=== PATIENT | female | born 1995 | race American Indian/Alaskan Native ===

== ENCOUNTER 2017-08-02 14:51 | Emergency (ER) | payer MEDICAID ==
[2017-08-02] MEDS ORDERED: MORPHINE IV ONE (16:20)
[2017-08-02] MEDS ORDERED: NACL 0.9% 1000 ML 1,000 ML IV ONE (16:20)
[2017-08-02] MEDS ORDERED: ZOFRAN IV ONE (16:20)
--- NOTE | 2017-08-02 16:22 | Emergency Department Report ---
<JOHN SAAVEDRA - Last Filed: 08/02/17 18:49> ED Abdominal Pain HPI - General Chief Complaint: Abdominal Pain Stated Complaint: LOWER RIGHT ABD PAIN Time Seen by Provider: 08/02/17 16:19 Source: patient Mode of arrival: Ambulatory Limitations: No Limitations - History of Present Illness Initial Comments: 22-year-old female past medical history hypertension scoliosis presents with complaint of 4-5 days of progressively worsening right-sided upper and lower abdominal pain. Patient denies any trauma denies any falls. Denies nausea vomiting fever or chills. Denies increased urinary frequency but does state that she has some dysuria. Patient awake alert and oriented 3. Pain currently 8 out of 10. Patient appears uncomfortable due to pain. Denies any rash denies any bloody diarrhea. MD Complaint: abdominal pain Onset/Timin -: days(s) Location: RUQ, RLQ Radiation: RUQ, RLQ Migration to: RUQ, RLQ Severity: severe Severity scale (0 -10): 8 Quality: sharp Consistency: constant Worsens With: nothing - Related Data Previous Rx's Medication Instructions Recorded Last Taken Type Ibuprofen [Motrin] 600 mg PO Q8H PRN #30 tablet 08/02/17 Unknown Rx Sulfamethoxazole/Trimethoprim 1 each PO BID #14 tablet 08/02/17 Unknown Rx [Bactrim DS TAB] ED Review of Systems ROS: Stated complaint: LOWER RIGHT ABD PAIN Other details as noted in HPI Constitutional: denies: chills, fever Eyes: denies: eye pain, eye discharge, vision change ENT: denies: ear pain, throat pain Respiratory: denies: cough, shortness of breath, wheezing Cardiovascular: denies: chest pain, palpitations Endocrine: no symptoms reported Gastrointestinal: denies: abdominal pain, nausea, diarrhea Genitourinary: denies: urgency, dysuria, discharge Musculoskeletal: denies: back pain, joint swelling, arthralgia Skin: denies: rash, lesions Neurological: denies: headache, weakness, paresthesias Psychiatric: denies: anxiety, depression Hematological/Lymphatic: denies: easy bleeding, easy bruising ED Past Medical Hx - Past Medical History Previous Medical History?: Yes Hx Hypertension: Yes Additional medical history: scolosis - Surgical History Past Surgical History?: No - Social History Smoking Status: Never Smoker Substance Use Type: None - Medications Home Medications: Home Medications Medication Instructions Recorded Confirmed Last Taken Type Ibuprofen [Motrin] 600 mg PO Q8H PRN #30 tablet 08/02/17 Unknown Rx Sulfamethoxazole/Trimethoprim 1 each PO BID #14 tablet 08/02/17 Unknown Rx [Bactrim DS TAB] ED Physical Exam - General Limitations: No Limitations General appearance: alert, in no apparent distress - Head Head exam: Present: atraumatic, normocephalic - Eye Eye exam: Present: normal appearance, PERRL, EOMI - ENT ENT exam: Present: mucous membranes moist - Neck Neck exam: Present: normal inspection - Respiratory Respiratory exam: Present: normal lung sounds bilaterally. Absent: respiratory distress - Cardiovascular Cardiovascular Exam: Present: regular rate, normal rhythm. Absent: systolic murmur, diastolic murmur, rubs, gallop - GI/Abdominal GI/Abdominal exam: Present: tenderness (right upper quadrant and right lower quadrant tenderness on deep palpation of abdomen), normal bowel sounds - External exam: Present: normal external exam Speculum exam: Present: vaginal discharge (white vaginal discharge) Bi-manual exam: Present: normal bi-manual exam - Extremities Exam Extremities exam: Present: normal inspection - Back Exam Back exam: Present: normal inspection - Neurological Exam Neurological exam: Present: alert, oriented X3 - Psychiatric Psychiatric exam: Present: normal affect, normal mood - Skin Skin exam: Present: warm, dry, intact, normal color. Absent: rash ED Course Vital Signs 08/02/17 08/02/17 14:56 20:01 Temperature 98.7 F 99.0 F Pulse Rate 102 H 70 Respiratory 18 16 Rate Blood Pressure 148/89 Blood Pressure 116/74 [Right] O2 Sat by Pulse 98 99 Oximetry ED Medical Decision Making - Lab Data Result diagrams: 08/02/17 16:34 08/02/17 16:34 - Medical Decision Making A/P: Abdominal pain 1-case reviewed with Dr. Villarreal, CT is unremarkable appendix is normal 2-labs unremarkable, GC cultures sent, wet prep sent 3-pending pelvic ultrasound for assessment of ovaries 4- Critical care attestation.: If time is entered above; I have spent that time in minutes in the direct care of this critically ill patient, excluding procedure time. ED Disposition Clinical Impression: Abdominal pain Qualifiers: Abdominal location: right upper quadrant Qualified Code(s): R10.11 - Right upper quadrant pain UTI (urinary tract infection) Qualifiers: Urinary tract infection type: site unspecified Hematuria presence: without hematuria Qualified Code(s): N39.0 - Urinary tract infection, site not specified Disposition: DC- TO HOME OR SELFCARE Condition: Stable Instructions: Abdominal Pain (ED), Urinary Tract Infection in Women (ED), Sulfamethoxazole/Trimethoprim (By mouth), Ibuprofen (By mouth) Additional Instructions: Follow-up with a primary care doctor in 3-5 days or if symptoms worsen and continue return to emergency room as soon as possible. Prescriptions: Ibuprofen [Motrin] 600 mg PO Q8H PRN #30 tablet PRN Reason: Pain Sulfamethoxazole/Trimethoprim [Bactrim DS TAB] 1 each PO BID #14 tablet Referrals: PRIMARY CAREMD [Primary Care Provider] - 3-5 Days JOHN SANFORD MD [Staff Physician] - 3-5 Days [facility] [Outside] - 3-[address] [facility] [Outside] - 3-5 Days Forms: Work/School Release Form(ED) <TERRY SCHULER - Last Filed: 08/02/17 20:16> ED Course - Reevaluation(s) Reevaluation #1: 08/02/17 19:45 Patient is signed out to me by TESSIE Larson. PAtient is speaking in full sentences with no signs of distress. Pending Ultrasound. ED Medical Decision Making - Lab Data Result diagrams: 08/02/17 16:34 08/02/17 16:34 - Medical Decision Making This is a 22-year-old female that presents with abdominal pain and UTI. Patient is stable. Patient is signed out to me by TESSIE Larson for pending ultrasound. CT/Ultrasound within normal limits and dictated by radiologist. IUD in place. Patient is notified of results with no questions noted. Patient stated symptoms of pain has resolved after medical treatment in the ED. Patient was rehydrated and PO challenge obtained and patient tolerated well with no nausea or vomiting. Vital signs stable prior to discharge. I will treat patient with Bactrim at discharge and motrin for pain. Patient was instructed to Follow- up with a primary care doctor in 3-5 days or if symptoms worsen and continue return to emergency room as soon as possible. At time of discharge, the patient does not seem toxic or ill in appearance. No acute signs of distress noted. Patient agrees to discharge treatment plan of care. No further questions noted by the patient. ED Disposition Is pt being admited?: No Does the pt Need Aspirin: No
[2017-08-02 16:53] LABS: Basophils # (Auto) 0.1 K/mm3 (0.0-0.1); Basophils % (Auto) 0.8 % (0.0-1.8); Eosinophils # (Auto) 0.1 K/mm3 (0.0-0.4); Eosinophils % (Auto) 0.7 % (0.0-4.3); Hematocrit 38.1 % (30.3-42.9); Hemoglobin 12.5 gm/dl (10.1-14.3); Lymphocytes # (Auto) 2.3 K/mm3 (1.2-5.4); Lymphocytes % (Auto) 29.3 % (13.4-35.0); Mean Corpuscular HGB Conc 33 % (30-34); Mean Corpuscular Hemoglobin 26 pg (28-32); Mean Corpuscular Volume 80 fl (79-97); Monocytes # (Auto) 0.8 K/mm3 (0.0-0.8); Monocytes % (Auto) 10.3 % (0.0-7.3); Platelet Count 428 K/mm3 (140-440); Red Blood Count 4.79 M/mm3 (3.65-5.03)
[2017-08-02 17:07] LABS: Alanine Aminotransferase 24 units/L (7-56); Albumin 4.6 g/dL (3.9-5); BUN/Creatinine Ratio 12; Blood Urea Nitrogen 7 mg/dL (7-17); Calcium 9.6 mg/dL (8.4-10.2); Hemolysis Index 6
[2017-08-02 17:09] LABS: Bilirubin,Direct < 0.2 mg/dL (0-0.2)
--- NOTE | 2017-08-02 18:19 | Cat Scan Report ---
FINAL REPORT PROCEDURE: CT ABDOMEN W CON TECHNIQUE: Computerized axial tomography of the abdomen and pelvis was performed after the IV injection of iodinated nonionic contrast. HISTORY: R-sided upper and lower abdominal pain acute COMPARISON: No prior studies are available for comparison. FINDINGS: Lower Lung uribe: No focal abnormality seen. Upper Abdomen: There is a 4 millimeter low-density nodule in the right lobe of the liver inferiorly laterally difficult to characterize given its small size although appears represent a small hepatic cyst. The liver is otherwise unremarkable. The gallbladder showed no focal abnormalities. The adrenal glands, the pancreas and the spleen are unremarkable. Kidneys, Ureters and Urinary bladder: 3 millimeter low-density nodule seen in the renal cortex of the middle 3rd of the left kidney anteriorly laterally difficult to characterize given its small size although appears represent a small renal cortical cyst. The kidneys, the ureters and urinary bladder otherwise are unremarkable. Retroperitoneum: Abdominal aorta appears normal. Nonspecific lymph nodes are seen in the retroperitoneum, periaortic pericaval region. Most of these measure well under a centimeter. The largest measures 9.7 x 6.3 millimeters. Bowel: No focal bowel abnormalities are seen. No evidence of bowel obstruction. There is no free intraperitoneal gas. Normal-appearing appendix is seen in the right lower quadrant. Reproductive organs: An IUD is visualized in the uterus. The uterus is otherwise unremarkable. The ovaries are poorly defined. There appears to be some nonspecific fluid in the cul-de-sac and adjacent to the ovaries. Other: No acute bony abnormalities are identified. IMPRESSION: Small hepatic cyst and renal cortical cysts appear to be present. The liver and kidneys otherwise are unremarkable. Nonspecific fluid seen in the cul-de-sac and adjacent to the ovaries. The ovaries are poorly defined on this exam. If further evaluation is clinically indicated pelvic ultrasound could be obtained.
[2017-08-02 18:42] LABS: Bilirubin,Urine NEG (Negative); Blood,Urine NEG (Negative); Color,Urine Straw (Yellow); Nitrite,Urine NEG (Negative); Protein,Urine <15 mg/dL mg/dL (Negative); RBC,Urine < 1.0 /HPF (0.0-6.0); Urobilinogen,Urine < 2.0 mg/dL (<2.0)
--- NOTE | 2017-08-02 19:57 | Ultrasound Report ---
FINAL REPORT PROCEDURE: US TRANSVAGINAL TECHNIQUE: Real-time transvaginal sonography in multiple planes of the pelvis was performed with image documentation. This examination was performed without Doppler. Vascular abnormalities, including ovarian torsion, will not be detectable without Doppler evaluation. CPT 64436 HISTORY: IUD in place w/ abd pain ? IUD displaced COMPARISON: No prior studies are available for comparison. FINDINGS: Uterus is visualized in the midline measuring 9.1 x 4.6 x 5.9 centimeter. No uterine masses are seen. The uterus is anteverted. Uterine myometrium appears homogeneous. Endometrial stripe measures 4.5 millimeter in thickness. No fluid is seen in the endometrial canal. Echogenic foci are seen in the endometrial canal in the region of the fundus of the uterus and appears to be in good position. Uterus is otherwise unremarkable. Minimal nonspecific fluid is seen in the lower pelvis. Right and left ovaries show no focal abnormalities. No abnormal cystic or solid masses are seen in the adnexa. The right ovary measures 3.1 x 2.4 x 2.8 centimeter. The left ovary measures 3.1 x 1.8 x 3.4 centimeter. IMPRESSION: IUD visualized and appears to be appropriately located in the endometrial canal towards the fundus of the uterus. Uterus is otherwise unremarkable. Ovaries showed no abnormalities. Small amount of nonspecific fluid is present in the cul-de-sac..
[2017-08-02 20:02] VITALS: BP 116/74
== END 2017-08-02 20:31 | disposition home or self-care (01) ==
LOC: ED 14:51
DX: N39.0 Urinary tract infection, site not specified (principal); R10.11 Right upper quadrant pain; I10 Essential (primary) hypertension
CPT/HCPCS: 36415; 74160; 76830; 80048; 80074; 81001; 82140; 83690; 84703; 85025; 87210; 87591; 96361; 96374; 96375; 99284; J2270; J2405; J7030; Q9967